=== PATIENT | male | born 1960 | race Caucasian/White ===

== ENCOUNTER 2018-08-07 09:56 | Day surgery (SDC) | payer BC ==
[~2018-08-07] VITALS: Ht 160 cm; Wt 76.2 kg
[2018-08-07] MEDS ORDERED: VENTOLIN (11:12)
[2018-08-07] MEDS ORDERED: LOSARTAN (11:12)
[2018-08-07] MEDS ORDERED: SERTALINE (11:12)
[2018-08-07] MEDS ORDERED: OMEPRAZOLE (11:12)
[2018-08-07] MEDS ORDERED: METFORMIN (11:12)
[2018-08-07] MEDS ORDERED: GABAPENTIN (11:12)
[2018-08-07] MEDS ORDERED: ATORVASTATIN (11:12)
[2018-08-07] MEDS ORDERED: GLIMEPERIDE (11:12)
[2018-08-07 11:14] VITALS: BP 139/84; PULSE 56; RESP 16
[2018-08-07 11:16] VITALS: Ht 160 cm; Wt 76.2 kg
[2018-08-07] MEDS ORDERED: LIDOCAINE 4% SOLUTION 50 ML BTL ONE (11:16)
[2018-08-07] MEDS ORDERED: FENTAnyl 50 MCG/ML VIAL ONE (12:46)
[2018-08-07] MEDS ORDERED: MIDAZOLAM 1 MG/ML 2 ML INJ ONE ×2 (12:46)
== END 2018-08-07 13:16 | disposition home or self-care (01) ==
LOC: GIL 09:56
PROVIDERS: ATTEND Internal Medicine Gastroenterology
DX: K29.70 Gastritis, unspecified, without bleeding (principal); K25.9 Gastric ulcer, unspecified as acute or chronic, without hemorrhage or perforation; I10 Essential (primary) hypertension
CPT/HCPCS: 43239; 82962; 88305; 88312; 88313; J2250; J3010; Z7610